=== PATIENT | male | born 1965 | race Caucasian/White ===

== ENCOUNTER 2022-01-18 09:08 | Emergency (ER) | payer MEDICAID, SELFPAY ==
--- NOTE | 2022-01-18 09:21 | XR_ITS ---
WS: [id number] Left ankle, 3 views, 01/18/2022 Clinical Data: ankle pain Comparison: Left foot, 06/17/2011, left ankle 11/05/2010. Findings: No fractures or dislocations are seen. The ankle mortise shows osteoarthritic change and sclerosis of the medial aspect of the plafond. There is a medial tilt of the talus. There is irregularity of the distal left fibula on its medial aspect. There is osteoarthritic change of the anterior aspect of the ankle joint with spurring of the distal tibia and of the adjacent talus. There are numerous soft tis paola calcifications approximately 0.7 cm each, in the ventral surface of the foot adjacent to the calc aneus and other tarsal bones. There is a faint 0.8 cm calcification posterior to the ankle joint.. XR/XR ankle LT min 3V* [id number] Impression: 1. 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 2. Soft tissue calcifications inferior to the mid tarsal bones which may be fro m a systemic disease such as chronic kidney disease.
[2022-01-18 09:23] VITALS: BP 119/83; PULSE 97; RESP 16; TEMP 36.2; O2SAT 96; BMI 28.3
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
[2022-01-18 10:15] VITALS: PULSE 81; RESP 16; O2SAT 96
--- NOTE | 2022-01-24 11:10 | DCPLANNER ---
Addendum entered by Sherie Vazquez 01/31/22 07:57: manager packaging received the following message from the ortho clinic regarding follow up appointment: Attempted to call pt and set up an appt with Dr. Ledesma for 01/25 pt did not answer and was not able to leave a vm Original Note: manager packaging had message to schedule a follow up appointment for patient with ortho. manager packaging sent patients information to the front office staff at ortho. Patients information will be printed and reviewed. Clinic will call patient with appointment information.
== END 2022-01-18 10:20 | disposition home or self-care (01) ==
PROVIDERS: Emergency Provider Physician Assistant; PCP Nurse Practitioner Family
DX: S99.912A Unspecified injury of left ankle, initial encounter (principal); M19.072 Primary osteoarthritis, left ankle and foot; F17.210 Nicotine dependence, cigarettes, uncomplicated; V89.2XXA Person injured in unspecified motor-vehicle accident, traffic, initial encounter
CPT/HCPCS: 73610; 99283

== ENCOUNTER 2023-08-14 10:19 | Emergency (ER) | payer MEDICAID, SELFPAY ==
[2023-08-14 10:23] VITALS: BP 165/96; PULSE 89; RESP 18; TEMP 36.8; O2SAT 97
--- NOTE | 2023-08-14 13:42 | ECG_ITS ---
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 Measurements Intervals [place] Rate: 89 P: 72 [place]: 127 QRS: 259 QRSD: 153 T: 57 QT: 381 QTc: 465 Interpretive Statements SINUS RHYTHM RIGHT AXIS DEVIATION [QRS AXIS > 100] RIGHT BUNDLE BRANCH BLOCK [120+ ms QRS DURATION, UPRIGHT V1, 40+ ms S IN I/aVL/V4/V5/V6] POSSIBLE SEPTAL MYOCARDIAL INFARCTION , OF INDETERMINATE AGE [30 ms Q WAVE IN V1/V2] No previous ECG available for comparison Electronically Signed On 08-14-2023 22:09:44 CDT by Aryan Rowe M.D. [id number] f
--- NOTE | 2023-08-14 13:42 | XR_ITS ---
WS: [id number] Portable AP upright chest, 08/14/2023 Clinical Data: dyspnea/cough Comparison: Portable chest, 01/24/2011 Findings: No nodules, masses or effusions are seen. The heart is normal. The pulmonary vascularity is not increased. No pneumonia or pneumothorax is seen. Impression: Negative chest.
--- NOTE | 2023-08-14 13:56 | W.ED.HA ---
HPI - Headache General: Chief Complaint: Headache Stated Complaint: high bp Time Seen by Provider: 08/14/23 13:41 Source: patient Mode of arrival: ambulatory History of Present Illness: 58-year-old male presents emergency room complaining of elevated blood pressure with headache. States he frequently gets headaches and his blood pressure is elevated denies chest pain or shortness of breath no difficulty with weakness swelling he has had a little bit of blurry vision this is been intermittent for the last couple of days. No vomiting no diarrhea. No pain in the shoulders neck back or arms MD elicited complaint: headache Onset (ago): day(s) Onset description: gradually Location: frontal Severity: moderate Quality & Timing: throbbing Exacerbating factors: none Relieving factors: nothing Associated symptoms: Deny chest pain, confusion, cough, diaphoresis, eye pain, eye redness, fever(s), lightheadedness, loss of vision, malaise, nausea, neck stiffness, numbness, paresthesias, photophobia, pre-syncope, rash, seizures, short of breath, sound sensitivity, syncope, vomiting or weakness Review of Systems Const: Denies: fever(s), chills, malaise or diaphoresis Card: Denies: chest pain, lightheadedness, syncope or pre-syncope Resp: Denies: dyspnea GI: Denies: abdominal pain, nausea or vomiting : Denies: dysuria, urinary frequency or urinary urgency Musc: Denies: neck pain or back pain Skin/Breast: Denies: rash Neuro: Denies: confusion PFSH ED PFSH: Social History Smoking and tobacco/nicotine status: current every day tobacco/nicotine user Alcohol intake: never Substance/Drug Use: never Physical Exam Const: COMMON NORMALS: no acute distress GENERAL APPEARANCE: cooperative and comfortable ORIENTATION/CONSCIOUSNESS: Yes awake, Yes oriented to person, Yes oriented to place and Yes oriented to time HENMT: COMMON NORMALS: normocephalic, atraumatic and hearing grossly normal bilaterally HEAD & SCALP: normocephalic and atraumatic Eye: DIRECT OPHTHALMOSCOPY: No photophobia Resp: COMMON NORMALS: normal respiratory effort, No retractions, No use of accessory muscles and clear to auscultation bilaterally AUSCULTATION: clear to auscultation bilaterally Cardio: COMMON NORMALS: regular rate, regular rhythm and No murmurs present (Cardio) RATE: regular rate RHYTHM: regular rhythm GI: COMMON NORMALS: Soft to palpation and No hepatosplenomegaly present AUSCULTATION: Yes normoactive bowel sounds PALPATION: Yes Soft to palpation, No Tenderness to palpation present (GI), No Guarding due to palpation present (GI) and Yes No hepatosplenomegaly present Extremity: COMMON NORMALS: normal to inspection, capillary refill normal, no clubbing, cyanosis or edema, no calf tenderness and no pedal edema Neuro: SENSORIUM/ORIENTATION: Yes oriented to person, Yes oriented to place and Yes oriented to time Skin: COMMON NORMALS: no rashes or lesions noted GENERAL SKIN EXAM: no rashes or lesions noted Course Vital Signs: Vital signs: Vital Signs Temperature 98.2 F 08/14/23 10:23 Pulse Rate 89 08/14/23 14:34 Respiratory Rate 18 08/14/23 10:23 Blood Pressure 164/115 08/14/23 14:34 Pulse Oximetry 91 08/14/23 14:34 Oxygen Delivery Me thod Room Air 08/14/23 14:34 MDM - Headache Medical Decision Making Labs and imaging reviewed. No acute findings on exam suggestive of stroke CT head is negative. Blood pressure improved with medications given discharged home on metoprolol and amlodipine follow-up with primary care within the next week. Medical Records I reviewed the patient's medical records. Lab Data I reviewed the patient's lab results. 08/14/23 13:50 08/14/23 13:[address] 08/14/23 14:30 IMPRESSION: No acute intracranial abnormality. Laboratory Results WBC 13.51 10^3/uL (3.29-11.43) H 08/14/23 13:50 RBC 5.53 10^6/uL (3.85-5.65) 08/14/23 13:50 Hgb 16.50 g/dL (11.27-16.99) 08/14/23 13:50 Hct 50.0 % (37-53) 08/14/23 13:50 MCV 90.4 fl (82-101) 08/14/23 13:50 MCH 29.8 pg (27-33) 08/14/23 13:50 MCHC 33.0 g/dL (30-55) 08/14/23 13:50 RDW 13.4 % (12.1-15.1) 08/14/23 13:50 Plt Count 295 10^3/cmm (157-399) 08/14/23 13:50 MPV 9.5 fL (7.4-10.4) 08/14/23 13:50 Neut % (Auto) 64.8 % 08/14/23 13:50 Lymph % (Auto) 24.1 % 08/14/23 13:50 [place] % (Auto) 6.2 % 08/14/23 13:50 Eos % (Auto) 4.0 % 08/14/23 13:50 Baso % (Auto) 0.6 % 08/14/23 13:50 Neut # (Auto) 8.75 10^3/uL (1.8-7.7) H 08/14/23 13:50 Lymph # (Auto) 3.3 10^3/uL (0.8-4.8) 08/14/23 13:50 [place] # (Auto) 0.8 10^3/uL (0.2-0.9) 08/14/23 13:50 Eos # (Auto) 0.5 10^3/uL (0.0-0.8) 08/14/23 13:50 Baso # (Auto) 0.1 10^3/uL (0.0-0.1) 08/14/23 13:50 Nucleated RBC % (auto) 0 % 08/14/23 13:50 Nucleated RBCs # 0.0 /100WBC 08/14/23 13:50 Sodium 138 mmol/L (136-145) 08/14/23 13:50 Potassium 4.2 mmol/L (3.5-5.1) 08/14/23 13:50 Chloride 106 mmol/L (98-107) 08/14/23 13:50 Carbon Dioxide 21 mmol/L (22-29) L 08/14/23 13:50 Anion Gap 15.2 (5-19) 08/14/23 13:50 BUN 20 mg/dL (6-20) 08/14/23 13:50 Creatinine 0.7 mg/dL (0.7-1.2) 08/14/23 13:50 GFR Calculation 115.4 mL/min (90-130) 08/14/23 13:50 Glucose 86 mg/dL (65-115) 08/14/23 13:50 Calculated Osmolality 288 mOsm/kg (285-295) 08/14/23 13:50 Calcium 9.5 mg/dL (8.5-10.5) 08/14/23 13:50 Total Bilirubin 0.5 mg/dL (0.15-1.2) 08/14/23 13:50 AST 12 U/L (0-40) 08/14/23 13:50 ALT 13 U/L (0-41) 08/14/23 13:50 Alkaline Phosphatase 94 U/L (40-130) 08/14/23 13:50 Total Protein 7.0 g/dL (6.6-8.7) 08/14/23 13:50 Albumin 4.4 g/dL (3.5-5.2) 08/14/23 13:50 Globulin 2.6 g/dL (1.3-4.6) 08/14/23 13:50 All radiology interpretation(s) finalized by discharge Discharge Plan Discharge Patient Disposition: Home Clinical Impression: Headache, HTN (hypertension) Condition: Stable Prescriptions: New amlodipine 5 mg tablet 5 mg PO DAILY Qty: 30 0RF Toprol XL 25 mg tablet extended release 24 hr 25 mg PO DAILY Qty: 30 0RF No Action Stool Softener 100 mg Capsule 100 mg PO DAILY Discharge Orders: Discharge ED (Routine); Ordered 08/14/23 Ordered By: Kolton Palmer Referrals: Ruby Meyers, POWER PLANT OPERATOR APPRENTICE-C [Primary Care Provider] - Discharge Diet: Usual diet Discharge Activity: Increase activity as tolerated Patient Instructions: Hypertension (ED), Opioid Safety, Pain Management Activity Restrictions/Additional Instructions: Thank you for choosing [facility] for your healthcare needs today. Please realize this is an emergency room and that we are providing you with a medical screening exam and this may not be complete and all inclusive of all the testing and or work up that you may need to determine your ailment or severity of your illness. It is very important that you follow up as instructed or that you return to the Emergency Department should you have concerns or if your condition changes or worsens in any way. You are seen today in the emergency room for complaint of headache and elevated blood pressure. CT did not show any acute changes on neurologic exam there is no signs of acute stroke. Your blood pressure was elevated but responded well to medications given you are discharged home with amlodipine and metoprolol to use for blood pressure control you should recheck your blood pressure with your primary care doctor within the next week Coding Level of Care Code ED Profile Grinder Technician for Hayde Gómez NIH stroke score NIHSS Level Of Consciousness - 1a: 0 Level Of Consciousness Questions - 1b: Both Correct Level Of Consciousness Commands - 1c: Both Correct
[2023-08-14] MEDS: hyDRALAzine 20 mg/mL INJ 1 mL 5 MG IVP (13:58)
[2023-08-14] MEDS: amlodipine 5 mg Tablet PO (13:58)
[2023-08-14 14:16] LABS: Basophils # 0.1 10^3/uL (0.0-0.1); Basophils % 0.6 %; Eosinophils # 0.5 10^3/uL (0.0-0.8); Lymphocytes # 3.3 10^3/uL (0.8-4.8); Lymphocytes % 24.1 %; Mean Corpuscular Hemoglobin 29.8 pg (27-33); Mean Corpuscular Volume 90.4 fl (82-101); Mean Platelet Volume 9.5 fL (7.4-10.4); Monocytes # 0.8 10^3/uL (0.2-0.9); Monocytes % 6.2 %; Neutrophils # 8.75 10^3/uL (1.8-7.7); Neutrophils % 64.8 %; Nucleated Red Blood Cells % 0 %; Platelet Count 295 10^3/cmm (157-399); Red Blood Count 5.53 10^6/uL (3.85-5.65); Red Cell Distribution Width 13.4 % (12.1-15.1); White Blood Count 13.51 10^3/uL (3.29-11.43)
--- NOTE | 2023-08-14 14:30 | CTR_ITS ---
PROCEDURE INFORMATION: Exam: CT Head Without Contrast Exam date and time: 08/14/2023 2:36 PM Age: 58 years old Clinical indication: Visual disturbance; Additional info: Vision changes/elevated BP TECHNIQUE: Imaging protocol: Computed tomography of the head without contrast. Radiation optimization: All CT scans at this facility use at least one of these dose optimization techniques: automated exposure control; mA and/or kV adjustment per patient size (includes targeted exams where dose is matched to clinical indication); or iterative reconstruction. COMPARISON: No relevant prior studies available. RADIATION DOSE METRICS: Total DLP (mGy-cm): 1128.56 FINDINGS: Brain: No midline shift. Ventricles, cisterns, and sulci are normal. No mass, acute infarct, hemorrhage, or extraaxial fluid collection. Cerebral ventricles: No ventriculomegaly. Paranasal sinuses: Diffuse paranasal sinus mucosal thickening. Mastoid air cells: Visualized mastoid air cells are well aerated. Bones/joints: Unremarkable. No acute fracture. Soft tissues: Unremarkable. CT/CT head wo con* [id number] IMPRESSION: No acute intracranial abnormality.
[2023-08-14 14:34] VITALS: BP 164/115; PULSE 89; O2SAT 91
[2023-08-14 14:34] LABS: Alanine Aminotransferase 13 U/L (0-41); Albumin Level 4.4 g/dL (3.5-5.2); Alkaline Phosphatase 94 U/L (40-130); Anion Gap 15.2 (5-19); Aspartate Amino Transferase 12 U/L (0-40); Blood Urea Nitrogen 20 mg/dL (6-20); Calcium 9.5 mg/dL (8.5-10.5); Carbon Dioxide 21 mmol/L (22-29); Chloride 106 mmol/L (98-107); Globulin 2.6 g/dL (1.3-4.6); Glomerular Filtration Rate 115.4 mL/min (90-130); Glucose 86 mg/dL (65-115); Osmolality Calculated 288 mOsm/kg (285-295); Potassium 4.2 mmol/L (3.5-5.1); Sodium 138 mmol/L (136-145); Total Bilirubin 0.5 mg/dL (0.15-1.2)
== END 2023-08-14 16:42 | disposition home or self-care (01) ==
PROVIDERS: Emergency Provider Family Medicine; PCP Nurse Practitioner Family
DX: R51.9 Headache, unspecified (principal); I10 Essential (primary) hypertension; Z72.0 Tobacco use
CPT/HCPCS: 36415; 70450; 71045; 80053; 85025; 93005; 96374; 99285; J0360

== ENCOUNTER 2024-05-28 00:48 | Emergency (ER) | payer OTHER, MEDICARE, SELFPAY ==
[2024-05-28 00:58] VITALS: BP 149/79; PULSE 122; RESP 24; TEMP 37.5; O2SAT 97; BMI 29.1
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
[2024-05-28 03:31] VITALS: BP 120/89; PULSE 118; RESP 16; O2SAT 90
[2024-05-28 03:34] LABS: Basophils # 0.1 10^3/uL (0.0-0.1); Basophils % 0.5 %; Eosinophils # 0.3 10^3/uL (0.0-0.8); Eosinophils % 2.3 %; Hematocrit 48.9 % (37-53); Lymphocytes # 0.4 10^3/uL (0.8-4.8); Lymphocytes % 3.7 %; Mean Corpuscular HGB Conc 33.5 g/dL (30-55); Mean Corpuscular Hemoglobin 29.6 pg (27-33); Mean Corpuscular Volume 88.3 fl (82-101); Mean Platelet Volume 9.4 fL (7.4-10.4); Monocytes # 0.9 10^3/uL (0.2-0.9); Monocytes % 8.3 %; Neutrophils # 9.04 10^3/uL (1.8-7.7); Neutrophils % 84.8 %; Nucleated Red Blood Cells % 0 %; Platelet Count 230 10^3/cmm (157-399); Red Blood Count 5.54 10^6/uL (3.85-5.65); Red Cell Distribution Width 12.9 % (12.1-15.1); White Blood Count 10.66 10^3/uL (3.29-11.43)
[2024-05-28 03:43] LABS: Alanine Aminotransferase 20 U/L (0-41); Albumin Level 4.3 g/dL (3.5-5.2); Alkaline Phosphatase 98 U/L (40-130); Aspartate Amino Transferase 18 U/L (0-40); Blood Urea Nitrogen 14 mg/dL (8-23); Calcium 9.4 mg/dL (8.5-10.5); Carbon Dioxide 21 mmol/L (22-29); Chloride 100 mmol/L (98-107); Creatinine Clr Calc Pharmacy 116.5194; Glucose 104 mg/dL (65-115); Osmolality Calculated 283 mOsm/kg (285-295); Sodium 136 mmol/L (136-145); Total Bilirubin 0.6 mg/dL (0.15-1.2); Total Protein 7.3 g/dL (6.6-8.7)
[2024-05-28 03:44] LABS: Lactic Sepsis W/Reflex 1.2 mmol/L (0.5-2.2)
[2024-05-28 03:52] LABS: Influenza A NEGATIVE (Negative); Influenza B NEGATIVE (Negative); Respiratory Syncytial Virus Ce NEGATIVE (Negative)
[2024-05-28 03:57] LABS: Bilirubin Urine Negative (Negative); Blood Urine 1+ (Negative); Glucose Urine UA Negative (Normal); Ketones Urine Negative (Negative); Leukocyte Esterase Urine 1+ (Negative); Nitrate Urine Negative (Negative); Protein Urine 1+ (Negative); Specific Gravity, Urine 1.019 (1.005-1.030); Urine Appearance Clear (CLEAR); Urine Color Yellow (Yellow); Urobilinogen Urine 0.2 mg/dL (Negative)
[2024-05-28 03:59] LABS: Covid PCR Positive (Negative)
[2024-05-28 04:02] LABS: Bacteria Urine None Seen /hpf; Hyaline Casts Urine 2.05 /lpf; RBC Urine 0-2 /hpf (0-2); Squamous Epithelial Cell Urine 0-5 /hpf (0-5)
[2024-05-28] MEDS: acetaminophen 500 mg Tablet 1000 MG PO (04:02)
[2024-05-28 04:33] VITALS: BP 112/91; PULSE 107; O2SAT 93
== END 2024-05-28 04:35 | disposition home or self-care (01) ==
PROVIDERS: Emergency Provider General Practice; PCP Nurse Practitioner Family
DX: U07.1 COVID-19 (principal); Z11.52 Encounter for screening for COVID-19; Z72.0 Tobacco use
CPT/HCPCS: 80053; 81001; 83605; 85025; 87637; 99283